=== PATIENT | male | born 1970 ===

== ENCOUNTER 2022-12-16 16:18 | Outpatient (CLI) | payer SELFPAY | END 2022-12-16 16:19 | disposition left against medical advice (07) | LOC: EMS 16:18 | DX: S01.112A Laceration without foreign body of left eyelid and periocular area, initial encounter (principal); S09.92XA Unspecified injury of nose, initial encounter; R41.82 Altered mental status, unspecified; W11.XXXA Fall on and from ladder, initial encounter; Y93.H3 Activity, building and construction; Y92.008 Other place in unspecified non-institutional (private) residence as the place of occurrence of the external cause ==